=== PATIENT | female | born 1970 | race American Indian/Alaskan Native ===

== ENCOUNTER 2019-10-27 17:59 | Emergency (ER) | payer SELFPAY ==
--- NOTE | 2019-10-27 18:48 | Emergency Department Report ---
HPI - General Chief Complaint: Medical Clearance Time Seen by Provider: 10/27/19 18:37 - HPI HPI: Room 18 The patient is a 48-year-old female presenting with a chief complaint of intentional overdose. Patient was sent from [facility] after going there for help after intentionally ingesting 7 pills to go to sleep and not wake up. The patient states she is felt suicidal for "a while." Patient has a history of bipolar disorder. The patient states she took 7 pills that were given to her by a friend who told her they were sleeping pills. Patient does not know any further details about this medication. Patient states she took them last night at approximately 22:30 ED Past Medical Hx - Past Medical History Hx Psychiatric Treatment: Yes (Bipolar disorder) - Surgical History Additional Surgical History: Lumpectomy. "Fat" tissue removed from stomach - Family History Family history: no significant - Social History Smoking Status: Never Smoker Substance Use Type: None (Denies illicit drug use) ED Review of Systems ROS: Stated complaint: MED CLEARANCE Other details as noted in HPI Constitutional: no symptoms reported Respiratory: no symptoms reported Endocrine: no symptoms reported Psychiatric: suicidal thoughts Physical Exam - Physical Exam Vital Signs: Vital Signs 10/27/19 18:32 Temperature 98 F Pulse Rate 64 Respiratory 16 Rate Blood Pressure 128/72 O2 Sat by Pulse 100 Oximetry Physical Exam: GENERAL: The patient is well-developed well-nourished female lying sitting on stretcher not appearing to be in acute distress. [] HEENT: Normocephalic. Atraumatic. Extraocular motions are intact. Patient has moist mucous membranes. NECK: Supple. Trachea midline CHEST/LUNGS: Clear to auscultation. There is no respiratory distress noted. HEART/CARDIOVASCULAR: Regular. There is no tachycardia. There is no gallop rub or murmur. ABDOMEN: Abdomen is soft, nontender. Patient has normal bowel sounds. There is no abdominal distention. SKIN: There is no rash. There is no edema. There is no diaphoresis. NEURO: The patient is awake, alert, and oriented. The patient is cooperative. The patient has normal speech MUSCULOSKELETAL: There is no evidence of acute injury. ED Course Vital Signs 10/27/19 18:32 Temperature 98 F Pulse Rate 64 Respiratory 16 Rate Blood Pressure 128/72 O2 Sat by Pulse 100 Oximetry ED Medical Decision Making - Lab Data Result diagrams: 10/27/19 18:53 10/27/19 18:53 Laboratory Tests 10/27/19 10/27/19 10/27/19 18:53 18:53 18:53 WBC 5.2 RBC 3.92 Hgb 10.2 Hct 31.5 MCV 80 MCH 26 L MCHC 32 RDW 15.2 Plt Count 385 Lymph % (Auto) 33.1 Edgar % (Auto) 8.6 H Eos % (Auto) 3.4 Baso % (Auto) 1.4 Lymph # 1.7 Edgar # 0.4 Eos # 0.2 Baso # 0.1 Seg Neutrophils % 53.5 Seg Neutrophils # 2.8 Sodium 140 Potassium 3.9 Chloride 104.5 Carbon Dioxide 23 Anion Gap 16 BUN 13 Creatinine 0.6 L Estimated GFR > 60 BUN/Creatinine Ratio 22 Glucose 78 Calcium 9.4 Total Bilirubin 0.60 AST 21 ALT 12 Alkaline Phosphatase 87 Total Protein 7.9 Albumin 3.8 L Albumin/Globulin Ratio 0.9 HCG, Qual Urine Color Urine Turbidity Urine pH Ur Specific [place] Urine Protein Urine Glucose (UA) Urine Ketones Urine Blood Urine Nitrite Urine Bilirubin Urine Urobilinogen Ur Leukocyte Esterase Urine WBC (Auto) Urine RBC (Auto) U Epithel Cells (Auto) Urine Mucus Salicylates < 0.3 L Urine Opiates Screen Urine Methadone Screen Acetaminophen Ur Barbiturates Screen Ur Phencyclidine Scrn Ur Amphetamines Screen U Benzodiazepines Scrn [place] < 0.1 Urine Cocaine Screen U Marijuana (THC) Screen Drugs of Abuse Note Plasma/Serum Alcohol 10/27/19 10/27/19 10/27/19 18:53 18:53 18:53 WBC RBC Hgb Hct MCV MCH MCHC RDW Plt Count Lymph % (Auto) Edgar % (Auto) Eos % (Auto) Baso % (Auto) Lymph # Edgar # Eos # Baso # Seg Neutrophils % Seg Neutrophils # Sodium Potassium Chloride Carbon Dioxide Anion Gap BUN Creatinine Estimated GFR BUN/Creatinine Ratio Glucose Calcium Total Bilirubin AST ALT Alkaline Phosphatase Total Protein Albumin Albumin/Globulin Ratio HCG, Qual Negative Urine Color Urine Turbidity Urine pH Ur Specific [place] Urine Protein Urine Glucose (UA) Urine Ketones Urine Blood Urine Nitrite Urine Bilirubin Urine Urobilinogen Ur Leukocyte Esterase Urine WBC (Auto) Urine RBC (Auto) U Epithel Cells (Auto) Urine Mucus Salicylates Urine Opiates Screen Urine Methadone Screen Acetaminophen < 5.0 L Ur Barbiturates Screen Ur Phencyclidine Scrn Ur Amphetamines Screen U Benzodiazepines Scrn [place] Urine Cocaine Screen U Marijuana (THC) Screen Drugs of Abuse Note Plasma/Serum Alcohol < 0.01 10/27/19 10/27/19 20:47 20:47 WBC RBC Hgb Hct MCV MCH MCHC RDW Plt Count Lymph % (Auto) Edgar % (Auto) Eos % (Auto) Baso % (Auto) Lymph # Edgar # Eos # Baso # Seg Neutrophils % Seg Neutrophils # Sodium Potassium Chloride Carbon Dioxide Anion Gap BUN Creatinine Estimated GFR BUN/Creatinine Ratio Glucose Calcium Total Bilirubin AST ALT Alkaline Phosphatase Total Protein Albumin Albumin/Globulin Ratio HCG, Qual Urine Color Yellow Urine Turbidity Clear Urine pH 5.0 Ur Specific [place] 1.024 Urine Protein <15 mg/dl Urine Glucose (UA) Neg Urine Ketones Tr Urine Blood Neg Urine Nitrite Neg Urine Bilirubin Neg Urine Urobilinogen 2.0 Ur Leukocyte Esterase Neg Urine WBC (Auto) 2.0 Urine RBC (Auto) 1.0 U Epithel Cells (Auto) < 1.0 Urine Mucus 1+ Salicylates Urine Opiates Screen Presumptive negative Urine Methadone Screen Presumptive negative Acetaminophen Ur Barbiturates Screen Presumptive negative Ur Phencyclidine Scrn Presumptive negative Ur Amphetamines Screen Presumptive negative U Benzodiazepines Scrn Presumptive negative [place] Urine Cocaine Screen Presumptive negative U Marijuana (THC) Screen Presumptive negative Drugs of Abuse Note Disclamer Plasma/Serum Alcohol - Differential Diagnosis Suicidal ideation Critical care attestation.: If time is entered above; I have spent that time in minutes in the direct care of this critically ill patient, excluding procedure time. ED Disposition Clinical Impression: Suicidal ideation, Medication overdose Disposition: [id number]/TX-[id number] PSY HOSP/PSY UNIT Is pt being admited?: No Does the pt Need Aspirin: No Condition: Stable Time of Disposition: 21:30 (Awaiting acceptance)
[2019-10-27 19:04] LABS: Basophils # (Auto) 0.1 K/mm3 (0.0-0.1); Basophils % (Auto) 1.4 % (0.0-1.8); Eosinophils # (Auto) 0.2 K/mm3 (0.0-0.4); Eosinophils % (Auto) 3.4 % (0.0-4.3); Hematocrit 31.5 % (30.3-42.9); Hemoglobin 10.2 gm/dl (10.1-14.3); Lymphocytes # (Auto) 1.7 K/mm3 (1.2-5.4); Lymphocytes % (Auto) 33.1 % (13.4-35.0); Mean Corpuscular HGB Conc 32 % (30-34); Mean Corpuscular Volume 80 fl (79-97); Monocytes # (Auto) 0.4 K/mm3 (0.0-0.8); Monocytes % (Auto) 8.6 % (0.0-7.3); Platelet Count 385 K/mm3 (140-440); Red Blood Count 3.92 M/mm3 (3.65-5.03); Red Cell Distribution Width 15.2 % (13.2-15.2)
[2019-10-27 19:23] LABS: Alanine Aminotransferase 12 units/L (7-56); Albumin 3.8 g/dL (3.9-5); BUN/Creatinine Ratio 22; Blood Urea Nitrogen 13 mg/dL (7-17); Calcium 9.4 mg/dL (8.4-10.2)
[2019-10-27 21:08] LABS: Bilirubin,Urine NEG (Negative); Blood,Urine NEG (Negative); Color,Urine Yellow (Yellow); Mucus,Urine 1+ /HPF; Protein,Urine <15 mg/dL mg/dL (Negative)
[2019-10-27 21:14] LABS: Amphetamine Screen,Urine PRESUMPTIVE NEGATIVE; Benzodiazepines Screen,Urine PRESUMPTIVE NEGATIVE; Cannabinoid Screen,Urine PRESUMPTIVE NEGATIVE; Cocaine Screen,Urine PRESUMPTIVE NEGATIVE; Methadone Screen,Urine PRESUMPTIVE NEGATIVE; Opiate Screen,Urine PRESUMPTIVE NEGATIVE
[2019-10-27] MEDS ORDERED: diphenhydrAMINE 50 MG/ML VIAL IM PRN (23:21)
[2019-10-27] MEDS ORDERED: LORazepam 2 MG/ML VIAL IM PRN (23:21)
[2019-10-27] MEDS ORDERED: HALOPERIDOL LACTATE 5 MG/1 ML INJ IM PRN (23:21)
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
[2019-10-28] MEDS: CITALOPRAM 20 MG TAB PO SCH (19:39)
[2019-10-28] MEDS ORDERED: traZODone 50 MG TAB PO SCH (22:00)
[2019-10-29 08:32] VITALS: BP 116/63
--- NOTE | 2019-10-29 11:00 | Progress Note ---
Subjective - Reason for Consult Consult date: 10/29/19 Reason for consult: MHA Requesting physician: SHERIE COLLADO - Chief Complaint Chief complaint: Psych Progress HPI patient reports improved mood today, says she does not feel like killing herself at the moment, endorses compliance with medication but still would like to go to facility for a depression and fear of reoccuring SI. REVIEW OF SYSTEMS Constitutional: Negative for weight loss ENT: Negative for stridor Respiratory: Negative for cough or hemoptysis All other systems reviewed and are negative MENTAL STATUS EXAMINATION General Appearance and Behavior: Age appropriate, fair hygiene, wearing appropriate clothes, lying in bed, good eye contact, cooperative polite with questioning. Cooperation: Participating/engaged Psychomotor Behavior: Psychomotor agitation Mood: improved Affect and affective range: Euthymic Thought Process: Fluent/Logical Thought Content: Hopelessness, Helplessness Speech: Normal volume, Regular rate and rhythm Intellectual Functioning: Average Suicidal Ideation:passive Homicidal Ideation: Denies HI Impulse Control: Unimpaired Insight and Judgment: Normal insight and judgment Memory: Normal Attention: Normal Orientation: Alert, oriented, anxious RECOMMENDATIONS Assessment and Plan - Patient Problems (1) MDD (major depressive disorder), recurrent episode, severe Current Visit: Yes Status: Acute (2) Bipolar 1 disorder, depressed Current Visit: Yes Status: Acute MEDICATIONS: Will restart home meds Risks, benefits and alternatives of medications discussed with the patient, questions answered and consent obtained from patient. PSYCHOTHERAPY: Supportive psychotherapy provided MEDICAL: Per primary team DELIRIUM PRECAUTIONS: Please re-orient patient frequently, keep lights on during the day, and minimize benzodiazepines and opiates as these medications could worsen patient's confusion. ANGULAR JS DEVELOPER: Per Medical team DISPOSITION: Recommends acute inpatient psychiatric hospitalization at this time LEGAL STATUS: 1013 FOLLOW-UP: Will follow Thank you for the consult. Please contact with any questions and/or concerns. Mental Status Exam - Vital signs Last Vital Signs Temp 98.3 F 10/29/19 02:04 Pulse 69 10/29/19 08:30 Resp 17 10/29/19 08:30 BP 116/63 10/29/19 08:30 Pulse Ox 100 10/29/19 02:04 Assessment and Plan - Patient Problems (1) MDD (major depressive disorder), recurrent episode, severe Current Visit: Yes Status: Acute (2) Bipolar 1 disorder, depressed Current Visit: Yes Status: Acute
[2019-10-29] MEDS: CITALOPRAM 20 MG TAB PO SCH (15:19)
== END 2019-10-29 17:17 ==
LOC: ED 17:59 → EEVIPCON 17:59 → ED 10-29 17:17
DX: T50.902A Poisoning by unspecified drugs, medicaments and biological substances, intentional self-harm, initial encounter (principal); R45.851 Suicidal ideations; F31.9 Bipolar disorder, unspecified; Z98.890 Other specified postprocedural states; Y92.89 Other specified places as the place of occurrence of the external cause
CPT/HCPCS: 36415; 80053; 80178; 80307; 80320; 81001; 84703; 85025; 93005; G0480